=== PATIENT | female | born 1955 | race Asian ===

== ENCOUNTER 2019-08-22 11:34 | Emergency (ER) | payer OTHER ==
[~2019-08-22] VITALS: Ht 165.1 cm; Wt 54.5 kg
[2019-08-22 13:19] VITALS: BP 130/88
== END 2019-08-22 13:39 | disposition home or self-care (01) ==
LOC: EMS 11:35
DX: U07.1 COVID-19 (principal); B34.9 Viral infection, unspecified; M79.10 Myalgia, unspecified site; E11.9 Type 2 diabetes mellitus without complications; I10 Essential (primary) hypertension
CPT/HCPCS: 87635